=== PATIENT | female | born 1995 | race Hispanic/Latino ===

== ENCOUNTER 2021-11-07 02:00 | Emergency (ER) | payer OTHER, SELFPAY ==
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
[2021-11-07] MEDS: cefTRIAXone 1 GM VIAL 0.5 GM IM (08:06)
[2021-11-07] MEDS: metroNIDAZOLE 250 MG TABLET 500 MG PO (08:07)
[2021-11-07] MEDS: DOXYCYCLINE HYCLATE 100 MG TABLET PO (08:07)
[2021-11-07] MEDS: ONDANSETRON HCL ODT 4 MG TABLET PO (08:07)
[2021-11-07] MEDS: LIDOCAINE HCL 1% LOCAL INJ 20 ML VIAL 2.1 ML XX (08:08)
== END 2021-11-07 08:59 | disposition home or self-care (01) ==
PROVIDERS: Emergency Provider Emergency Medicine
DX: T74.21XA Adult sexual abuse, confirmed, initial encounter (principal); E11.65 Type 2 diabetes mellitus with hyperglycemia; F17.290 Nicotine dependence, other tobacco product, uncomplicated; Y07.9 Unspecified perpetrator of maltreatment and neglect
CPT/HCPCS: 87070; 87077; 87491; 87591; 87808; 96372; 99284; A9270; J0696

== ENCOUNTER 2021-11-09 20:56 | Emergency (ER) | payer SELFPAY ==
[2021-11-09 21:02] VITALS: BP 149/91; PULSE 86; RESP 16; TEMP 37.1; O2SAT 100
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
[2021-11-09] MEDS: KETOROLAC 30 MG/ML VIAL (*BKC) IV PUSH (21:27)
[2021-11-09 21:43] LABS: Appearance Urine Clear (Clear); Bilirubin Urine Negative (Negative); Blood Urine Negative (Negative); Color Urine Yellow (Yellow); Glucose Urine UA 3+ mg/dL (Negative); Ketones Urine Negative (Negative); Leukocyte Esterase Ur Trace LEU/UL (Negative); Nitrate Urine Negative (Negative); Protein Urine Negative (Negative); Urobilinogen Urine 0.2 mg/dL (<2.0)
[2021-11-09 21:47] LABS: Bacteria Urine Trace /hpf; Mucus Urine Rare /lpf; Squamous Epithelial Cell Urine Many /hpf (Few); WBC Urine 21-30 /hpf
[2021-11-09 21:55] LABS: Add Urine Microscopic? YES
[2021-11-09] MEDS: NAPROXEN 500 MG TABLET PO (22:32)
== END 2021-11-09 22:38 | disposition home or self-care (01) ==
PROVIDERS: Emergency Provider Emergency Medicine
DX: K04.7 Periapical abscess without sinus (principal); N39.0 Urinary tract infection, site not specified; E11.9 Type 2 diabetes mellitus without complications; F17.290 Nicotine dependence, other tobacco product, uncomplicated
CPT/HCPCS: 81001; 87086; 87088; 96374; 99284; A9270; J1885